=== PATIENT | female | born 1985 | race Asian ===

== ENCOUNTER → 2019-07-21 | Outpatient (CLI) | payer OTHER | LOC: ZLAB.ENT 13:34 | DX: J03.90 Acute tonsillitis, unspecified (principal) ==

== ENCOUNTER 2019-12-25 22:51 | Inpatient (IN) | payer OTHER ==
[~2019-12-25] VITALS: Ht 170.2 cm; Wt 98.6 kg
[2019-12-25 23:00] VITALS: BP 130/81; PULSE 122
[2019-12-25 23:15] VITALS: BP 126/70; PULSE 109
--- NOTE | 2019-12-25 23:20 | NUR ---
Pt relaxing, reports 'pain less, pressure more'. 2325 SROM clear fluid. SVE complete. Dr Mohan into room. Pt set up for delivery. Perineal prep completed. Pushing instructions given. 23[address] female infant by Dr Mohan. Pt and spouse loving and excited about .
--- NOTE | 2019-12-25 23:20 | NUR ---
To unit via wheelchair for labor assessment, accompanied by spouse. Pt moaning with contractions. Pt speaks minimal Cambodian, understands some Cambodian, translates. Assisted into bathroom, clothes changed, unto bed. SVE 8. Pt requesting epidural.
[2019-12-25 23:36] LABS: BASO % 0.1 % (0.0-2.0); EOS # 0.1 (0.0-0.7); EOS % 0.7 % (0-4.0); GRAN # 7.2 (1.4-6.5); GRAN % 69.4 % (42.2-75.2); HEMATOCRIT 40.2 % (37.0-47.0); HEMOGLOBIN 13.2 g/dl (12.5-16.0); LYMPH # 2.4 (1.2-3.4); LYMPH % 22.7 % (20.0-51.0); MEAN CELL VOLUME 90 fl (80.0-100.0); MEAN CORPUSCULAR HEMOGLOBIN 29 pg (27.0-31.0); MEAN CORPUSCULAR HGB CONC 33 g/dl (33.0-37.0); MEAN PLATELET VOLUME 10.9 fl (7.4-10.4); MONO # 0.7 (0.1-0.6); MONO % 6.6 % (1.7-9.3); PLATELET COUNT 224 K/mm3 (130-400); RED BLOOD COUNT 4.49 M/mm3 (4.10-5.30); REDCELL DISTRIBUTION WIDTH-CV 14.4 % (11.5-14.5)
[2019-12-25 23:50] VITALS: BP 136/56; PULSE 107
--- NOTE | 2019-12-25 23:50 | NUR ---
Perineal repair complete, pericare done, ice pack to perineum, bed together.
--- NOTE | 2019-12-25 23:50 | NUR ---
Placenta delivers spont and intact with 3 vessell cord. Pitocin 30 units in 500cc LR started @ bolus rate.
[2019-12-26] VITALS (12 sets, daily range): BP systolic 99–145; BP diastolic 51–73; PULSE 90–115; TEMP 98–98.8
--- NOTE | 2019-12-26 03:45 | NUR ---
Up to bathroom with steady gait. Voids large amount, performs pericare, clean gown on and ambulates to room.
[2019-12-27 08:00] VITALS: BP 119/65; PULSE 103; TEMP 97.7
[2019-12-27] MEDS ORDERED: IBU600 MG PO (12:47)
--- NOTE | 2019-12-27 14:51 | NUR ---
PT SPEAKS SOME GUAMANIAN BUT DOES NOT READ GUAMANIAN. OB ABUSE SCREENING RECORD NOT ABLE TO BE OBTAINED.
[2019-12-27 15:25] VITALS: BP 105/54; PULSE 91; TEMP 98.8
[2019-12-27 20:30] VITALS: BP 115/57; PULSE 92; TEMP 98.2
--- NOTE | 2019-12-27 22:45 | NUR ---
2245 DISMISSAL INSTRUCTIONS GONE OVER AND QUESTIONS ANSWERED. 2300 DISMISSED TO HOME PER AMB ACC BY AND BABY.
== END 2019-12-27 23:00 | disposition home or self-care (01) | DRG 807 ==
LOC: LDR 22:51 → OB 12-26 03:45
PROVIDERS: Student in an Organized Health Care Education/Training Program; ADMIT Obstetrics & Gynecology
PROC: 10E0XZZ Delivery of Products of Conception, External Approach (ICD-10-PCS; principal; 2019-12-26)
PROC: 0KQM0ZZ Repair Perineum Muscle, Open Approach (ICD-10-PCS; 2019-12-26)
DX: O99.824 Streptococcus B carrier state complicating childbirth (principal); Z37.0 Single live birth; O99.214 Obesity complicating childbirth; E66.9 Obesity, unspecified; O99.02 Anemia complicating childbirth; D64.9 Anemia, unspecified; Z3A.40 40 weeks gestation of pregnancy; O70.1 Second degree perineal laceration during delivery; O99.62 Diseases of the digestive system complicating childbirth; K21.9 Gastro-esophageal reflux disease without esophagitis
CPT/HCPCS: J2540; J2590; J2795; J7120